=== PATIENT | female | born 2000 | race Caucasian/White ===

== ENCOUNTER 2020-06-22 21:30 | Emergency (ER) | payer OTHER ==
[2020-06-22] MEDS ORDERED: IBUPROFEN600 MG PO (22:12)
== END 2020-06-22 22:21 | disposition home or self-care (01) ==
LOC: ER1 21:30
DX: S90.31XA Contusion of right foot, initial encounter (principal); W19.XXXA Unspecified fall, initial encounter
CPT/HCPCS: 73630; 99283